=== PATIENT | female | born 1945 | race Caucasian/White ===

== ENCOUNTER → 2016-09-14 | Outpatient (CLI) | payer OTHER ==
[2016-09-14 12:58] LABS: BASOPHILS # (AUTO) 0.06 10*3/UL; BASOPHILS % (AUTO) 1.3 % (0-1); EOSINOPHILS % (AUTO) 3.2 % (0-8); HEMATOCRIT 39.1 % (37.0-47.0); HEMOGLOBIN 13.2 g/dL (12.0-16.0); IMM GRAN % (AUTO) 0.2 % (0-5); IMM GRAN# (AUTO) 0.01 10*3/UL; LYMPHOCYTES # (AUTO) 1.51 10*3/uL; LYMPHOCYTES % (AUTO) 32.1 % (10-50); MEAN CORPUSCULAR HEMOGLOBIN 30.5 PG (27-31); MEAN CORPUSCULAR HGB CONC 33.8 g/dL (33-37); MONOCYTES % (AUTO) 6.4 % (5-15); NEUTROPHILS # (AUTO) 2.68 10*3/UL; NEUTROPHILS % (AUTO) 56.8 % (50-80); RDW COEFFICIENT OF VARIATION 13.5 % (11.5-14.5); RED BLOOD COUNT 4.33 10^6/uL (4.20-5.40); WHITE BLOOD COUNT 4.71 10^3/uL (4.8-10.8)
[2016-09-14 13:04] LABS: PLATELET MORPHOLOGY COMMENT NORMAL MORPHOLOGY (NORM)
[2016-09-14 13:05] LABS: ASPARTATE AMINO TRANSFERASE 38 IU/L (8-39); BILIRUBIN,TOTAL 0.6 mg/dL (0.3-1.2); BLOOD UREA NITROGEN 16 mg/dL (7-22); CALCIUM 9.8 mg/dL (8.7-10.7); CHLORIDE 104 meq/L (98-112); CREATININE 0.8 mg/dL (0.50-1.20); EST GLOMERULAR FILTRATION > 60 (>60 ml/min/1.73m(2)); GLUCOSE 94 mg/dL (78-110); HDL CHOLESTEROL 50 mg/dL (40-150); POTASSIUM 4.4 meq/L (3.8-5.2); SODIUM 140 meq/L (135-145); TOTAL PROTEIN 7.5 g/dL (6.1-8.0); TRIGLYCERIDES 340 mg/dL (44-200)
[2016-09-14 13:26] LABS: BILIRUBIN,URINE NEGATIVE (NEG); CLARITY,URINE CLEAR (CLEAR); GLUCOSE, URINE (UA) NEGATIVE (NEG); LEUKOCYTE ESTERASE ,URINE TRACE (NEG); NITRATE,URINE NEGATIVE (NEG); OCCULT BLOOD,URINE NEGATIVE (NEG); PH,URINE 5.5 (5.0-8.5); PROTEIN,URINE NEGATIVE (NEG); UROBILINOGEN,URINE 0.2 mg/dL (0.2)
[2016-09-14 13:27] LABS: URINE SAMPLE TYPE CLEAN CATCH URINE
[2016-09-14 13:35] LABS: RBC,URINE 0 /hpf; WBC,URINE 0-2
[2016-09-14 13:36] LABS: SQUAMOUS EPITHELIAL CELL,UR RARE
== END ==
LOC: MOB LAB 11:53
PROVIDERS: ATTEND Internal Medicine
DX: I10 Essential (primary) hypertension (principal); E78.5 Hyperlipidemia, unspecified; R51 Headache; Z86.39 Personal history of other endocrine, nutritional and metabolic disease
CPT/HCPCS: 36415; 80053; 80061; 81001; 84443; 85025

== ENCOUNTER → 2016-09-26 | Outpatient (CLI) | payer OTHER | LOC: MMPC 11:11 | PROVIDERS: ATTEND Internal Medicine | DX: I10 Essential (primary) hypertension (principal); E78.4 Other hyperlipidemia; E66.9 Obesity, unspecified | CPT/HCPCS: 99213 ==

== ENCOUNTER → 2016-11-07 | Outpatient (CLI) | payer OTHER | LOC: MMPC 11:11 | PROVIDERS: ATTEND Internal Medicine | DX: I10 Essential (primary) hypertension (principal); E78.4 Other hyperlipidemia; E66.9 Obesity, unspecified; J30.2 Other seasonal allergic rhinitis | CPT/HCPCS: 99213; G0463 ==

== ENCOUNTER → 2017-01-16 | Outpatient (CLI) | payer OTHER ==
[2017-01-16 11:15] LABS: CHOL/HDL RATIO 4.54 RATIO (0-4.0); SERUM ALBUMIN 4.6 g/dL (3.5-4.8)
== END ==
LOC: LAB 10:35
PROVIDERS: ATTEND Internal Medicine
DX: E78.4 Other hyperlipidemia (principal); I10 Essential (primary) hypertension
CPT/HCPCS: 36415; 80061; 80076

== ENCOUNTER → 2017-01-18 | Outpatient (CLI) | payer OTHER | LOC: MMPC 11:11 | PROVIDERS: ATTEND Internal Medicine | DX: E78.4 Other hyperlipidemia (principal); E89.40 Asymptomatic postprocedural ovarian failure; E66.9 Obesity, unspecified; J30.2 Other seasonal allergic rhinitis; I10 Essential (primary) hypertension | CPT/HCPCS: 99213; G0463 ==